=== PATIENT | female | born 1985 ===

== ENCOUNTER 2019-03-31 18:13 | Emergency (ER) | payer OTHER ==
[2019-03-31 19:20] VITALS: BP 138/106
--- NOTE | 2019-03-31 19:25 | UC ---
Skin Complaint HPI - HPI Summary HPI Summary: 33 yo female presents with blister to her right index finger for the last 2 days. She first noticed it 2 days ago and it was clear at that time and was slightly oozing clear fluid. She applied a band-aid today and when she removed it, noticed a larger blister that was yellow in color - prompting her visit to . Has slight pain to the area. No known injury. Denies fever or chills. - History of Current Complaint Chief Complaint: UCSkin Time Seen by Provider: 03/31/19 19:25 Stated Complaint: SKIN COMPLAINT Hx Obtained From: Patient Hx Last Menstrual Period: 03/22/2019 Onset/Duration: Gradual Onset Onset Severity: Mild Current Severity: Mild Pain Intensity: 2 Pain Scale Used: 0-10 Numeric - Allergy/Home Medications Home Medications: Home Medications Acetaminophen TAB* [Tylenol TAB*] 03/31/19 [History] PMH/Surg Hx/FS Hx/Imm Hx - Additional Past Medical History Additional PMH: None - Surgical History Surgical History: None - Family History Known Family History: Positive: Non-Contributory - Social History Occupation: Employed Full-time Lives: With Family Alcohol Use: None Substance Use Type: None Smoking Status (MU): Never Smoked Tobacco Review of Systems All Other Systems Reviewed And Are Negative: Yes Constitutional: Positive: Negative Skin: Positive: Other - Blister right index finger Respiratory: Positive: Negative Cardiovascular: Positive: Negative Neurovascular: Positive: Negative Musculoskeletal: Positive: Negative Neurological: Positive: Negative Psychological: Positive: Negative Physical Exam - Summary Physical Exam Summary: GENERAL: NAD. WDWN. No pain distress. SKIN: RIGHT index finger: Dorsal aspect overlying PIP with 1.0cm blister with yellow thick fluid inside. Slight surrounding erythema. Mild TTP. NECK: Supple. Nontender. No lymphadenopathy. CHEST: No accessory muscle use. Breathing comfortably and in no distress. CV: Pulses intact. Cap refill <2seconds MSK: FROM right index finger MCP, PIP, and DIP NEURO: Alert. PSYCH: Age appropriate behavior. Triage Information Reviewed: Yes Vital Signs: Initial Vital Signs Temp 99.1 F 03/31/19 19:13 Pulse 92 03/31/19 19:13 Resp 16 03/31/19 19:13 BP 138/106 03/31/19 19:13 Pulse Ox 100 08/09/19 19:13 Vital Signs Reviewed: Yes Course/Dx - Course Course Of Treatment: The blister was oozing thick yellow fluid and a culture was obtained. Will place her on keflex for wound infection and f/u with culture results. Keep area covered with a band-aid changing daily until well healed - Diagnoses Provider Diagnosis: Blister (nonthermal) of right index finger, initial encounter Discharge - Sign-Out/Discharge Documenting (check all that apply): Patient Departure All imaging exams completed and their final reports reviewed: No Studies - Discharge Plan Condition: Stable Disposition: HOME Prescriptions: Cephalexin CAP* [Keflex CAP*] 500 mg PO TID #21 cap Patient Education Materials: Wound Infection (ED), Blister (ED) Referrals: No Primary Care Phys,NOPCP [Primary Care Provider] - Additional Instructions: If you develop a fever, shortness of breath, chest pain, new or worsening symptoms - please call your PCP or go to the ED immediately. Your blood pressure was high at todays visit. Please see your primary provider within 4 weeks for recheck and re-evaluation. Change the band-aid daily until well healed - Billing Disposition and Condition Condition: STABLE Disposition: Home
== END 2019-03-31 19:50 | disposition home or self-care (01) ==
LOC: UCEAST 18:13
DX: S60.420A Blister (nonthermal) of right index finger, initial encounter (principal); X58.XXXA Exposure to other specified factors, initial encounter; Y93.9 Activity, unspecified
CPT/HCPCS: 87070; 87077; 87186; 87205; 87640; 87641; 99212; G0463